=== PATIENT | female | born 1995 | race Caucasian/White ===

== ENCOUNTER 2018-09-22 15:18 | Outpatient (REF) | payer OTHER, SELFPAY ==
--- NOTE | 2018-09-22 14:45 | PAPFT_PTH ---
PATIENT: Jessica Russell LOC: [facility] U#:[id number] AGE/SX: 23/F ROOM: RE09/22/[address]: Yannick Don CNM : 1995 BED: DIS: 09/22/2018 SPEC #: [id number] RECD: 09/22/18 18:02 STATUS: SOCRATES REKim #: [id number] GIOVANI: 09/22/18 14:[address]: Yannick Don DEPT: [facility] Cytology RECD BY: Lilly Scanlon ENTERED: 09/22/18 18:02 SP TYPE: PAPFT OTHR DR: Unknown,Unknown Tissues: 1 - CX/ENDOCX FOR PAP SMEARS Procedures: PAP THIN PREP/UVM Screening HPV DNA PROBE Comments: [id number]
[2018-09-24 13:22] LABS: Chlamydia Result Negative; GC Result Negative; Specimen Description CERVIX
== END 2018-09-22 15:38 ==
LOC: LBN 15:18
PROVIDERS: Visit Provider Advanced Practice Midwife
DX: Z34.91 Encounter for supervision of normal pregnancy, unspecified, first trimester (principal); Z11.3 Encounter for screening for infections with a predominantly sexual mode of transmission; Z12.4 Encounter for screening for malignant neoplasm of cervix
CPT/HCPCS: 87491; 87591; 88142; 87624

== ENCOUNTER 2018-10-02 15:04 | Outpatient (CLI) | payer OTHER, SELFPAY ==
[2018-10-02 16:43] LABS: Abs Immature Grans 0.02 k/cumm (0.0-0.09); Absolute Basophil Count 0.01 k/cumm (0.0-0.2); Absolute Eosinophil Count 0.08 k/cumm (0.0-0.7); Absolute Lymphocyte Count 2.13 k/cumm (1.2-3.4); Absolute Monocyte Count 0.58 k/cumm (0.11-0.7); Absolute Neutrophil Count 5.91 k/cumm (1.2-6.7); Basophils % 0.1; Eosinophils % 0.9; HCT 35.7 % (36.0-46.0); HGB 12.1 g/dL (12.0-15.5); Immature Grans % 0.2; Lymphocytes % 24.4; Mean Corp. HGB Concentration 33.9 g/dL (32.0-36.0); Mean Corpuscular Hemoglobin 29.4 pg (27.0-33.0); Mean Corpuscular Volume 86.7 fL (80-95); Mean Platelet Volume 9.4 fL (8.0-11.0); Monocytes % 6.6; Neutrophils % 67.8; Platelet Count 253 x1000/uL (130-400); RBC 4.12 m/cumm (4.00-5.20); RBC Distribution Width 12.5 % (11.7-14.6); White Blood Cell Count 8.73 k/cumm (4.4-10.8)
[2018-10-02 16:48] LABS: Glucose,1 Hr (Glucola) 110 mg/dL (80-140)
[2018-10-02 18:38] LABS: TSH (W/Ref FT4) 1.45 uIU/mL (0.36-3.74)
[2018-10-05 10:53] LABS: Hepatitis B Surface Ag Negative (NEGAT)
[2018-10-05 10:55] LABS: Hepatitis C Ab w Rflx HCV PCR Negative (NEGAT)
[2018-10-05 11:09] LABS: HIV-1/2 Ag & Ab Screen Negative (NEGAT)
[2018-10-05 11:43] LABS: Rubella IgG Ab (UVM) Positive; Varicella IgG Antibody Positive
== END 2018-10-02 15:24 ==
PROVIDERS: Advanced Practice Midwife; PCP Nurse Practitioner Family; Visit Provider Advanced Practice Midwife
DX: Z34.91 Encounter for supervision of normal pregnancy, unspecified, first trimester (principal); Z11.59 Encounter for screening for other viral diseases; Z01.84 Encounter for antibody response examination; Z11.4 Encounter for screening for human immunodeficiency virus [HIV]
CPT/HCPCS: 36415; 82950; 86787; 86803; 86850; 86900; 86901; 87340; 87389; 84443; 85025; 86762

== ENCOUNTER 2018-10-20 10:46 | Outpatient (REF) | payer OTHER, SELFPAY ==
[2018-10-21 12:28] LABS: *AMPHETAMINES SCREEN URINE Negative (Negative); *BARBITURATES SCREEN URINE Negative (Negative); *BENZODIAZEPINES SCREEN URINE Negative (Negative); Cannabinoids THC Negative (Negative); Cocaine Screen,Urine Negative (Negative); METHADONE URINE SCREEN Negative (Negative); OPIATES URINE SCREEN Negative (Negative)
[2018-10-21 12:32] LABS: Tricyclic Antidepressants Negative (Negative)
[2018-10-27 14:58] LABS: Buprenorphine Negative; Norbuprenorphine Negative
== END 2018-10-20 11:06 ==
LOC: LBN 10:46
PROVIDERS: PCP Nurse Practitioner Family; Visit Provider Advanced Practice Midwife
DX: Z34.91 Encounter for supervision of normal pregnancy, unspecified, first trimester (principal)
CPT/HCPCS: 80307; 87086

== ENCOUNTER 2018-12-02 01:07 | Outpatient (CLI) | payer BC, OTHER, SELFPAY ==
--- NOTE | 2018-12-02 07:26 | DI.US_ITS ---
EXAM: US OB 2-3 TRIMESTER W MOD CLINICAL HISTORY: , survey,Z34.90. TECHNIQUE: Ultrasound performed using standard protocol. COMPARISON: There is no prior comparison examination. FINDINGS: A cephalic presentation is noted. anomaly was identified; however, the nose and lips wer e not seen. measurements suggest a gestational age of 19 weeks and 3 days. The amniotic fluid index is normal. A posterior grade 0-I placenta is identified. [facility], date to be arranged. IMPRESSION: Please see the obstetrical ultrasound worksheet for complete results of this study.
== END 2018-12-02 01:27 ==
PROVIDERS: PCP Nurse Practitioner Family; Visit Provider Advanced Practice Midwife
DX: Z34.92 Encounter for supervision of normal pregnancy, unspecified, second trimester (principal)
CPT/HCPCS: 76805

== ENCOUNTER 2018-12-23 01:41 | Outpatient (CLI) | payer BC, SELFPAY ==
--- NOTE | 2018-12-23 14:50 | DI.US_ITS ---
EXAM: US OB F/U FACIAL/LVOT/RVOT CLINICAL HISTORY: F/U SURVEY, F/U NOSE/LIPS TECHNIQUE: Ultrasound performed using standard protocol. COMPARISON: US OB 2-3 TRIMESTER W MOD from 12/02/2018 FINDINGS: The fetus is in cephalic position. The nose and lips are visualized on today's exam but were somewha t difficult to visualize due to position. Cardiac activity and motion are noted. The pl acenta is grade 1 and posterior. IMPRESSION: No gross evidence of a facial abnormality.
== END 2018-12-23 02:01 ==
PROVIDERS: Visit Provider Advanced Practice Midwife
DX: Z34.82 Encounter for supervision of other normal pregnancy, second trimester (principal); Z36.2 Encounter for other antenatal screening follow-up
CPT/HCPCS: 76815

== ENCOUNTER 2019-01-29 14:18 | Outpatient (CLI) | payer OTHER, SELFPAY ==
[2019-01-29 15:42] LABS: HCT 31.9 % (36.0-46.0); HGB 10.5 g/dL (12.0-15.5); Mean Corp. HGB Concentration 32.9 g/dL (32.0-36.0); Mean Corpuscular Hemoglobin 29.1 pg (27.0-33.0); Mean Corpuscular Volume 88.4 fL (80-95); Mean Platelet Volume 10.1 fL (8.0-11.0); Platelet Count 273 x1000/uL (130-400); RBC 3.61 m/cumm (4.00-5.20); RBC Distribution Width 12.7 % (11.7-14.6); White Blood Cell Count 6.66 k/cumm (4.4-10.8)
[2019-01-29 15:48] LABS: Glucose,1 Hr (Glucola) 81 mg/dL (80-140)
[2019-02-01 11:17] LABS: Syphilis Total Ab w/Reflex Nonreactive (Nonreactive)
== END 2019-01-29 14:38 ==
PROVIDERS: Advanced Practice Midwife; Visit Provider Advanced Practice Midwife
DX: Z34.92 Encounter for supervision of normal pregnancy, unspecified, second trimester (principal)
CPT/HCPCS: 82950; 85027; 86780

== ENCOUNTER 2019-03-29 16:13 | Outpatient (REF) | payer OTHER, SELFPAY ==
[2019-03-29 16:43] LABS: *AMPHETAMINES SCREEN URINE Negative (Negative); *BARBITURATES SCREEN URINE Negative (Negative); *BENZODIAZEPINES SCREEN URINE Negative (Negative); Cannabinoids THC Negative (Negative); Cocaine Screen,Urine Negative (Negative); METHADONE URINE SCREEN Negative (Negative); OPIATES URINE SCREEN Negative (Negative)
[2019-03-29 16:44] LABS: Tricyclic Antidepressants Negative (Negative)
[2019-04-01 10:20] LABS: Buprenorphine Negative
== END 2019-03-29 16:33 ==
LOC: LBN 16:13
PROVIDERS: Visit Provider Advanced Practice Midwife
DX: Z34.93 Encounter for supervision of normal pregnancy, unspecified, third trimester (principal); Z36.85 Encounter for antenatal screening for Streptococcus B
CPT/HCPCS: 80307; 87081

== ENCOUNTER 2019-04-19 15:55 | Outpatient (CLI) | payer OTHER, SELFPAY | END 2019-04-19 16:15 | PROVIDERS: Visit Provider Advanced Practice Midwife | DX: O76 Abnormality in fetal heart rate and rhythm complicating labor and delivery (principal); Z3A.38 38 weeks gestation of pregnancy | CPT/HCPCS: 59025 ==

== ENCOUNTER 2019-04-26 16:46 | Inpatient (IN) | payer OTHER, SELFPAY ==
[2019-04-26 17:19] LABS: HGB 11.9 g/dL (12.0-15.5); Mean Corp. HGB Concentration 33.1 g/dL (32.0-36.0); Mean Corpuscular Hemoglobin 28.5 pg (27.0-33.0); Mean Corpuscular Volume 86.1 fL (80-95); Mean Platelet Volume 10.1 fL (8.0-11.0); Platelet Count 272 x1000/uL (130-400); RBC 4.18 m/cumm (4.00-5.20); RBC Distribution Width 13.3 % (11.7-14.6); White Blood Cell Count 11.87 k/cumm (4.4-10.8)
[2019-04-26] MEDS: Lactated Ringers 250 ML 500 ML IV (21:30)
[2019-04-27] MEDS: Lactated Ringers 1,000 ML 125 ML IV (01:01)
[2019-04-27] MEDS: Ibuprofen 600 MG TAB PO (11:09)
[2019-04-27] MEDS: Acetaminophen 325 MG TAB 650 MG PO (11:09)
[2019-04-27] MEDS: Hamamelis Leaf/Glycerin 100 EACH BOX PR (11:10)
== END 2019-04-28 16:00 | disposition home or self-care (01) | DRG 807 ==
PROVIDERS: Admitting Provider Advanced Practice Midwife; Visit Provider Advanced Practice Midwife
DX: O62.1 Secondary uterine inertia (principal); Z37.0 Single live birth; Z3A.39 39 weeks gestation of pregnancy; O69.81X0 Labor and delivery complicated by cord around neck, without compression, not applicable or unspecified; Z30.09 Encounter for other general counseling and advice on contraception; O99.02 Anemia complicating childbirth; O99.344 Other mental disorders complicating childbirth; D64.9 Anemia, unspecified; F43.21 Adjustment disorder with depressed mood; Z79.82 Long term (current) use of aspirin
CPT/HCPCS: 36415; 85027; 86850; 86900; 86901; J3490

== ENCOUNTER 2019-06-01 15:49 | Outpatient (REF) | payer OTHER, SELFPAY ==
[2019-06-02 15:09] LABS: Chlamydia Result Negative (Negative); GC Result Negative (Negative)
== END 2019-06-01 16:09 ==
LOC: LBN 15:49
PROVIDERS: Visit Provider Advanced Practice Midwife
DX: Z11.3 Encounter for screening for infections with a predominantly sexual mode of transmission (principal); Z97.5 Presence of (intrauterine) contraceptive device
CPT/HCPCS: 87491; 87591

== ENCOUNTER 2020-02-11 14:07 | Emergency (ER) | payer OTHER, SELFPAY ==
[2020-02-11 14:15] VITALS: BP 125/73; PULSE 91; RESP 18; TEMP 36.6; O2SAT 99
--- NOTE | 2020-02-11 14:33 | W.ED.GENAD ---
Discharge Plan Disposition Patient Disposition: HOME Condition: Stable Discharge Details Clinical Impression: Acute sore throat Primary Care Provider: Ese Barney ED Provider: Eladia Collazo Home Meds and New Rx's Prescriptions: New cephalexin 500 mg tablet 500 mg PO BID 7 Days Qty: 14 RF: 0 No Action Mirena 20 mcg/24 hours (5 yrs) 52 mg intrauterine device 1 device IY ONCE RF: 0 Discharge Instructions Instructions: Strep Throat (ED) Additional Instructions: Follow up with primary care provider in 3-5 days. Return to ED sooner if any worsening or concerns. Increase oral fluids. Please take Tylenol or Ibuprofen with food every 4-6 hours as needed for pain and swelling. Gargle with warm salt water gargles 3 times a day as needed. Referrals: Ese Barney [Primary Care Provider] - Medical Decision Making 24-year-old female presents to the ED with chief complaint of sore throat. Patient states that she has extensive history of strep throat which she gets about yearly. She denies any shortness of breath or cough. Rapid strep swab obtained and is negative will be sent for reflex culture at this time. Patient was given ibuprofen and dexamethasone p.o. here in department. Discussed results with patient, verbalized understanding. At this time due to patient's history and recurrent history of strep throat will treat with antibiotics. She would opt for oral antibiotics at this time. Prescription written for cephalexin 500 mg twice a day x7 days. Instructed to gargle with warm salt water 3 times a day as needed. Instructed to follow-up with PCP verbalized understanding. This text was generated using [employer] dictation system, please disregard any oddities of phrase or misspellings. HPI General Mode of arrival: ambulatory. Date/Time Provider Initiated Documentation: 02/11/20 14:09. Limitations to Documentation: no limitations. Information obtained by: patient. HPI Narrative: 24-year-old female presents to the ED with chief complaint of sore throat. Patient states that she has extensive history of strep throat which she gets about yearly. She denies any shortness of breath or cough. Related Data Home Medications Medication Instructions Recorded Confirmed levonorgestrel 20 mcg/24 hours (6 1 device IY ONCE 06/01/19 07/26/19 yrs) 52 mg intrauterine device cephalexin 500 mg PO BID 7 Days #14 tab 02/11/20 Previous Rx's Medication Instructions Recorded cephalexin 500 mg PO BID 7 Days #14 tab 02/11/20 Allergies Allergy/AdvReac Type Severity Reaction Status Date / Time clarithromycin [From Biaxin] AdvReac Intermediate vomiting Verified 07/26/19 15:43 Influenza Virus Vaccines AdvReac Verified 07/26/19 15:43 General Stated Complaint: Sorethroat DEMAR: 3 Review of Systems Narrative: Constitutional: Negative for weight loss, alert and oriented, well groomed, normal body habitus, appears comfortable. HEENT: Denies trauma, headaches, blurry vision, nasal discharge, positive sore throat. Chest: Denies chest pain, palpitations, irregular rhythm, hypertension. Respiratory: Denies Shortness of breath, cough, hemoptysis. GI: Denies abdominal pain, nausea, vomiting, diarrhea, constipation. : Denies dysuria, hematuria, flank pain, rectal bleeding. Neuro: Denies dizziness, blurry vision, weakness, syncope, headache or facial numbness. Hematologic: Denies easy bruising, intolerance to heat or cold, hair loss. 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 Father No problems noted. Social History (Updated 09/15/18 @ 10:59 by Elisha Arteaga RN, RN) Smoking/Tobacco Use Status: Never Second Hand Exposure: Yes Smoking risk assessment performed?: Yes Alcohol Intake: current Alcohol Intake frequency: holidays/special occasions only Details: quit when she found out she was Drug use: Rarely Substance use type: marijuana Household members: significant other Do you feel safe at home: Yes Do you feel safe in your relationship?: Yes Female Reproductive History Menstrual Age of Menarche: 11 Duration of menses: 6-7 days control method: progestin IUCD History History 1 Para 0 Hx # Term Pregnancies 1 Multiple births 0 Hx # Pregnancies 0 Ectopic pregnancies 0 AB induced 0 Hx Number of Living Children 0 AB spontaneous 0 Past Pregnancies Del. Date GA/Weeks # Outcome Route Wgt Sex Labor Lgth Anesthesia Location Prov Complic 04/27/19 40 No Successful vaginal 3260.195 g Female 12hrs 2 min A. JOSÉ MIGUEL Dobbins Delivery Date: 04/27/19 Epidural, Nitrous during labor Ruby Mast Exam Narrative Exam Narrative: Constitutional: Alert and oriented x3. Appears stated age. Normal body habitus. Head: Normocephalic, no trauma. Eyes: Pupils PERRLA, Red reflex noted, EOM's intact. Eyelids symmetrical without lesions, discharge, or swelling. ENT: Bilateral TM's WNL, External ear normal to inspection, no mastoid TTP, swelling, or erythema, Nasal turbinates WNL, no nasal discharge. Normal dentition, Posterior pharynx beefy red, questionable exudate noted to the posterior oropharynx. Status post tonsillectomy. Tonsils bilaterally are 0. Positive anterior cervical lymphadenopathy. Chest: RRR, Normal S1, S2, distal pulses intact. Resp: Lungs clear to auscultation bilaterally, no wheezes, rales, or rhonchi. Musculoskeletal: Normal gait, 5/5 strength to all four extremities. Skin: No suspicious rashes or lesions. Capillary refill less than 2 sec. . Hematologic/Lymphatic: No ecchymosis, Course Vital Signs Vital signs: Vital Signs Temperature 36.6 C 02/11/20 14:15 Pulse 91 H 02/11/20 14:15 Respiratory Rate 18 02/11/20 14:15 Blood Pressure 125/73 02/11/20 14:15 Pulse Oximetry 99 02/11/20 14:15 Temperature 36.6 C 02/11/20 14:15 Temperature Source Tympanic 02/11/20 14:15 Pulse 91 H 02/11/20 14:15 Respiratory Rate 18 02/11/20 14:15 Respiratory Effort 02/11/20 14:20 Blood Pressure 125/73 02/11/20 14:15 Blood Pressure Position Sitting 02/11/20 14:15 Pulse Oximetry 99 02/11/20 14:15 Oxygen Delivery Method Room Air 02/11/20 14:15 Oxygen Flow Rate 0 02/11/20 14:15 Pain Level 10 02/11/20 14:15 Comment 02/11/20 14:15
[2020-02-11] MEDS: Ibuprofen 600 MG TAB PO (14:48)
[2020-02-11] MEDS: Dexamethasone 10 MG/ML VIAL PO (14:48)
[2020-02-11 15:07] VITALS: BP 121/76; PULSE 101; RESP 16; TEMP 36.9; O2SAT 100
== END 2020-02-11 15:09 | disposition home or self-care (01) ==
PROVIDERS: Emergency Provider Registered Nurse Emergency; PCP Family Medicine
DX: J02.8 Acute pharyngitis due to other specified organisms (principal)
CPT/HCPCS: 87880; 99283; 87081; J1100

== ENCOUNTER 2021-07-30 11:43 | Emergency (ER) | payer OTHER, SELFPAY ==
[2021-07-30 11:55] VITALS: BP 118/67; PULSE 84; RESP 14; TEMP 36.2; O2SAT 100
--- NOTE | 2021-07-30 12:20 | ED.GENADUL_ITS ---
Discharge Plan Disposition Patient Disposition: HOME Condition: Stable Discharge Details Clinical Impression: Abdominal pain, Nausea Primary Care Provider: Ese Barney ED Provider: Eva Miller Home Meds and New Rx's Prescriptions: New ondansetron 4 mg tablet,disintegrating 4 mg PO Q6H PRN (Reason: nausea and vomiting) Qty: 10 0RF Continued Mirena 20 mcg/24 hours (5 yrs) 52 mg intrauterine device 1 device IY ONCE Rx Instructions: placed 06/01/2019 Discharge Instructions Instructions: Acute Nausea and Vomiting (ED), Abdominal Pain (ED) Additional Instructions: Your imaging and labs are reassuring here today. Your abdominal discomfort may be associated with what you had for dinner or inflammation. Please encourage hydration. Tylenol as needed for discomfort. Zofran as prescribed if you develop recurrent nausea. Please keep your upcoming appointment with your primary care. If you develop fevers/chills, increased pain, inability to stay hydrated or other new/worsening symptoms please seek care urgently once again. Referrals: Ese Barney [Primary Care Provider] - Discharge Data Discharge Date/Time-TO BE ENTERED AT DEPARTURE: 07/30/21 15:45 Medical Decision Making Patient is a pleasant 26 year old female presenting today with c/c of abdominal discomfort that began yesterday. She describes pain starting around 0900, initially thought associatedw tih dinner the night prior. Endorses nausea, no vomiting. No change in bowel or bladder habits. No pertient surgical history. Denies fevers but states she has had some chills. States that pain is primarily epigastric, maximal after eating. Pain initially right then left sided. Now radiating toward the LLQ. On exam, patient appears nontoxic. She appears well hydrated, VS stable. She is diffusely tender, maximal in the epigastric region. Concerned given her signficant increase in discomfort after eating, for possible cholecystitis, will obtain US. Patint also tender in LLQ but this does ont seem as pronounced. She states this radiates to the LUQ. No pain in her back. No CVA tenderness. As pain is changed with PO intake, I find ovarianc cyst or torsion highly unlikely. She has had cysts pior but does not belive this is similar. Will preform SECURITY GUARD eam to look for adenexal tenderness. She denies vaginal pain or discharge. US obtained: FINDINGS: LIVER: Mildly enlarged.? Mild fatty infiltration..? No focal liver lesions are seen.. GALLBLADDER: No evidence of cholelithiasis. No evidence of wall thickening. No pericholecystic fluid identified. JACQUES'S SIGN: Negative. BILIARY SYSTEM: No intrahepatic or extrahepatic biliary ductal dilation. KIDNEYS: Kidneys are symmetric in size. No evidence of renal calculi. No evidence of hydronephrosis. No renal mass or cyst identified. PANCREAS: Normal where visualized. SPLEEN: Not enlarged. ABDOMINAL AORTA AND IVC: Visualized portions normal caliber. ASCITES: None seen. IMPRESSION: Mildly enlarge fatty liver.? No evidence of cholelithiasis or biliary dilatation . Labs reviewed, UA contaminated. She has no dysurea, frequency or urgency. No leukocytosis, patient is not anemic. Normal CMP and lipase. Discussed findings with the patient. She appears more comfortable, receiving hydration, drinking. She continued to have discomfort, more along left side at this time. Vaginal exam preformed, no adenexal tenderness or cervical tenderness. Discussed findings with the patient. Her exam is reassuring but patient continues to report signficant pain. Will treat pain and obtain CT for abdoinal pain of unclear etiology. Secondary to shortage, the CT will be without contrast. FINDINGS: ABDOMEN: Lung Bases: Normal where visualized. Liver: Fatty infiltration.? Mildly enlarged.? No measurable mass. Gallbladder and biliary tract: No radiodense calculus or dilation. Pancreas: Normal density, no abnormal calcifications or inflammatory process. Spleen: Normal. Kidneys: Normal size, contour and axis.? Two tiny nonobstructing stone lower pole right kidney.? No obstructive uropathy. No masses seen. Adrenal glands: No masses seen. Lymph nodes: Within normal limits. Abdominal Aorta: Abdominal portion non-dilated. PELVIS:? Bladder: Symmetric distention, no gross wall thickening. Bowel: Appendix normal.? Normal quantity of stool.? No obstruction or bowel wall thickening. Peritoneal cavity: No ascites, collection or mesenteric inflammatory response. Reproductive organs: IUD.? Within normal limits. Bones: Within normal limits. IMPRESSION: Unremarkable CT scan of the abdomen and pelvis. Discussed findings with the patient. Advised unclear etiology. Given timig, may be assoiated with what she ate prior to onset of pain. I advised watch/wait approach. Encouraged supportive care. Return precautions discussed. Discussed advancement of diet. Encouraged she f/u with PCP. All of her quesitons and cocnerns were addressed, she is in agreement iwth this plan. HPI General Date/Time Provider Initiated Documentation: 07/30/21 12:20 . Limitations to Documentation: no limitations . Information obtained by: patient and RN notes reviewed . History of Present Illness 26 year old F presents to the emergency department with the chief complaint of abdominal discomfort, described as severe, with intensity rated at 10. Quality is described as aching, and is localized to the abdomen. Patient reports no radiation. Patient started experiencing this day(s) (1) and it has been constant. No relieving factors improve symptom(s), Eating worsens symptoms . Patient notes loss of appetite and nausea/vomiting (nausea, no vomiting); denies chest pain, diaphoresis, fever/chills, rash and shortness of breath. Patient did receive the following treatments prior to arrival, none Related Data Home Medications Medication Instructions Recorded Confirmed levonorgestrel 20 mcg/24 hours (7 1 device intrauterine ONCE 06/01/19 07/30/21 yrs) 52 mg intrauterine device (Mirena) ondansetron 4 mg disintegrating 4 mg PO Q6H PRN nausea and 07/30/21 tablet vomiting #10 tabs Previous Rx's Medication Instructions Recorded ondansetron 4 mg disintegrating 4 mg PO Q6H PRN nausea and 07/30/21 tablet vomiting #10 tabs Allergies Allergy/AdvReac Type Severity Reaction Status Date / Time clarithromycin [From Biaxin] AdvReac Intermediate vomiting Verified 07/30/21 11:58 Influenza Virus Vaccines AdvReac Verified 07/30/21 11:58 General Stated Complaint: Abd Prob DEMAR: 3 Review of Systems Constitutional Constitutional: Reports as per HPI, Denies chills, Denies fatigue, Denies fever(s) and Denies headache(s) ENT Ears, Nose, Mouth, and Throat: Denies headache(s) Cardiovascular Cardiovascular: Reports as per HPI, Denies chest pain and Denies dyspnea Respiratory Respiratory: Reports as per HPI, Denies cough and Denies dyspnea Gastrointestinal Gastrointestinal: Reports as per HPI Genitourinary Genitourinary: Denies abnormal vaginal bleeding, Denies hematuria, Denies dyspareunia (had intercourse without pain yesterday when in pain), Denies urinary urgency and Denies vaginal discharge Musculoskeletal Musculoskeletal: Reports as per HPI and Denies back pain Integumentary/Breasts Skin/Breast: Reports as per HPI and Denies rash Neurologic Neurologic: Reports as per HPI and Denies headache(s) Endocrine Endocrine: Denies fatigue PFSH All Active Problems (Updated 07/30/21 @ 15:30 by NICHOLE Landis) Abdominal pain (Acute) Nausea (Acute) Concussion (Acute) Contraception, device intrauterine (Acute) exam (Acute) ASCUS with positive high risk HPV (Acute) S/P wisdom tooth extraction (Acute) (Acute) Medical History Allergic rhinitis ALLERGIC DUST, MOLD, POLLEN ASCUS with positive high risk HPV Depressed affect Ovarian cyst Surgical History Tonsillectomy and adenoidectomy [place] teeth extracted Family History Mother No problems noted. Father No problems noted. Social History Smoking/Tobacco Use Status: Never Second Hand Exposure: Yes Smoking risk assessment performed?: Yes Alcohol Intake: current Alcohol Intake frequency: holidays/special occasions only Details: quit when she found out she was Drug use: Occasionally Substance use type: marijuana Details: on weekends Household members: significant other Seatbelt use: always Do you feel safe at home: Yes Do you feel safe in your relationship?: Yes Female Reproductive History Menstrual Age of Menarche: 11 Duration of menses: 6-7 days control method: progestin IUCD History History 1 Para 0 Hx # Term Pregnancies 1 Multiple births 0 Hx # Pregnancies 0 Ectopic pregnancies 0 AB induced 0 Hx Number of Living Children 0 AB spontaneous 0 Past Pregnancies Del. Date GA/Weeks # Outcome Route Wgt Sex Labor Lgth Anesthes ia Location [facility] 04/27/19 40 No Successful vaginal 3260.195 g Female 12hrs 2 min ACurtis Dobbins CNM Delivery Date: 04/27/19 Last Updated by: Ruby Miller LPN Epidural, Nitrous during labor Exam Const General: cooperative, healthy appearing, comfortable, no acute distress and well developed Nutritional Appearance: well nourished and overweight Orientation: alert and awake [facility] Head: normal to inspection Mouth: moist mucous membranes Resp Effort & Inspection: normal respiratory effort, able to speak in complete sentences and no respiratory distress Auscultation: clear to auscultation bilaterally, no rales, no rhonchi and no wheezes Cardio Rate: regular rate Rhythm: regular rhythm Heart Sounds: S1 normal and S2 normal GI Inspection: normal to inspection Palpation: soft, no hepatosplenomegaly, not firm, no guarding, no masses, not rigid and tender (fairly diffuse) in the epigastrum, in the LLQ and in the LUQ; Jacques's sign negative and with no rebound tenderness Percussion: normal to percussion Auscultation: normal bowel sounds External Female Exam: normal external appearance Speculum Exam - Cervix: nontender Bimanual Exam- Vagina & Uterus: normal bimanual exam, normal palpation, No tender and non-tender Bimanual Exam- Adnexa, other: normal adnexae, no masses and no tenderness Back/Spine/Pelvis Back: no CVA tenderness Skin General skin exam: no rashes or lesions noted Trauma: no lacerations or abrasions Neuro General: patient alert and patient awake Cognition: normal cognition Speech: speech normal Gait: normal gait Psych Appearance: grossly normal and well kempt Mental Status: mental status grossly normal Speech and Movement: speech and movement normal Course Vital Signs Vital signs: Vital Signs Temperature 36.2 C L 07/30/21 11:55 Pulse 84 07/30/21 11:55 Respiratory Rate 14 07/30/21 11:55 Blood Pressure 118/67 07/30/21 11:55 Pulse Oximetry 100 07/30/21 11:55 Temperature 36.2 C L 07/30/21 11:55 Temperature Source Skin 07/30/21 11:55 Pulse 84 07/30/21 11:55 Respiratory Rate 14 07/30/21 11:55 Respiratory Effort 07/30/21 12:05 Blood Pressure 118/67 07/30/21 11:55 Blood Pressure Position Sitting 07/30/21 11:55 Pulse Oximetry 100 07/30/21 11:55 Oxygen Delivery Method Room Air 07/30/21 11:55 Oxygen Flow Rate 0 07/30/21 11:55 Pain Level 10 07/30/21 11:55 Comment 05/23/22 11:55 Lab/Test Results Lab/Test Results: POC- Test(urine) Negative PAWSS Have you Been Recently Intoxicated or Drunk Within the Last 30 days?: No Have you Ever Experienced Previous Episodes of Alcohol Withdrawal?: No Have you ever Experienced Withdrawal Seizures?: No Have you ever Experienced Delirium Tremens(DT)s?: No Have you ever undergone Alcohol Rehabilitation Treatment (i.e, inpt ot outpati ent treatment programs)?: No Have you ever Experienced Blackouts?: No Have you ever Combined Alcohol with other Downers within the last 90 days?: No Have you ever Combined Alcohol with any other Substance of Abuse during the last 90 days?: No Positive Blood Alcohol level on Presentation? [PCS.BAL]: No Evidence of Increased Autonomic Activity (i.e. HR>120, tremor, sweating, agitation, nausea)?: No Result: 0
--- NOTE | 2021-07-30 12:36 | DI.US_ITS ---
Exam(s) US ABDOMEN EXAM: US ABDOMEN CLINICAL HISTORY: postprandial pain epigastric TECHNIQUE: Ultrasound abdomen performed using standard protocol. COMPARISON: CT ABD PELVIS WITH CONTRAST from 07/17/2015 FINDINGS: LIVER: Mildly enlarged. Mild fatty infiltration.. No focal liver lesions are seen.. GALLBLADDER: No evidence of cholelithiasis. No evidence of wall thickening. No pericholecystic fluid identified. BONE'S SIGN: Negative. BILIARY SYSTEM: No intrahepatic or extrahepatic biliary ductal dilation. KIDNEYS: Kidneys are symmetric in size. No evidence of renal calculi. No evidence of hydronephrosis. No renal mass or cyst identified. PANCREAS: Normal where visualized. SPLEEN: Not enlarged. ABDOMINAL AORTA AND IVC: Visualized portions normal caliber. ASCITES: None seen. IMPRESSION: Mildly enlarged fatty liver. No evidence of cholelithiasis or biliary dilatation. DATA REPOSITORY:
[2021-07-30] MEDS: Normal Saline 1,000 ML 1000 ML IV (12:43)
[2021-07-30 13:05] LABS: Abs Immature Grans 0.02 10^3/uL (0.0-0.06); Absolute Basophil Count 0.03 10^3/uL (0.0-0.2); Absolute Eosinophil Count 0.15 10^3/uL (0.0-0.7); Absolute Lymphocyte Count 1.71 10^3/uL (1.2-3.4); Absolute Monocyte Count 0.54 10^3/uL (0.1-0.8); Basophils % 0.5; Eosinophils % 2.3; HCT 41.9 % (36.0-46.0); HGB 13.9 g/dL (11.2-15.7); Immature Grans % 0.3; Lymphocytes % 26.5; MCH 29.2 pg (27.0-33.0); MCHC 33.2 % (32.0-36.0); MCV 88 fL (80-95); MPV 9.1 fL (8.0-11.0); Monocytes % 8.4; Platelet Count 240 10^3/uL (130-400); RBC 4.76 10^6/uL (3.93-5.22); RDW 12.5 % (11.7-14.6); RDW-SD 40.9 fL; WBC 6.45 10^3/uL (4.4-10.8)
[2021-07-30 13:18] LABS: ALT 22 U/L (14-59); AST 14 U/L (15-37); Albumin 3.6 g/dL (3.4-5.0); Alkaline Phosphatase 92 U/L (46-116); Anion Gap 10.3 mmol/L (3-11); BUN 12 mg/dL (7-18); Bilirubin, Total 0.5 mg/dL (0.2-1.0); CO2 24.7 mmol/L (21.0-32.0); CREATININE 0.7 mg/dL (0.55-1.02); Calcium 8.6 mg/dL (8.5-10.1); Chloride 104 mmol/L (98-107); Glucose 108 mg/dL (74-106); Lipase 46 U/L (73-393); Magnesium 2.4 mg/dL (1.8-2.4); Potassium 3.6 mmol/L (3.5-5.1); Sodium 139 mmol/L (136-145); Total Protein 7.7 g/dL (6.4-8.2)
[2021-07-30 13:32] LABS: Bilirubin Negative (Negative); Blood Small (Negative); Clarity Sl Cloudy (Clear); Glucose Negative (Negative); Ketones Negative (Negative); Leukocyte Esterase Negative (Negative); Nitrite Negative (Negative); Specific Gravity >= 1.030 (1.005-1.025); Urobilinogen 0.2 EU/dL (Up TO 0.2)
[2021-07-30 13:40] LABS: Bacteria Moderate HPF (Negative); C & S Indicated? No/Sq. Contamination; Casts 0-2 Hyaline LPF (Negative); Crystals Rare Calcium Oxalate HPF (Negative); Epithelial Cells Many HPF (Negative); Mucus Trace (Negative); WBC 0-2 HPF (0-5)
--- NOTE | 2021-07-30 14:00 | DI.CT_ITS ---
Exam(s) CT ABDOMEN PELVIS WO EXAM: CT ABDOMEN PELVIS WO CLINICAL HISTORY: diffuse discomfort,. TECHNIQUE: Imaging Protocol: Axial computed tomography images with coronal and sagittal reformatted images were created and reviewed. Oral: / no COMPARISON: CT ABD PELVIS WITH CONTRAST from 07/17/2015 FINDINGS: ABDOMEN: Lung Bases: Normal where visualized. Liver: Fatty infiltration. Mildly enlarged. No measurable mass. Gallbladder and biliary tract: No radiodense calculus or dilation. Pancreas: Normal density, no abnormal calcifications or inflammatory process. Spleen: Normal. Kidneys: Normal size, contour and axis. Two tiny nonobstructing stone lower pole right kidney. No o bstructive uropathy. No masses seen. Adrenal glands: No masses seen. Lymph nodes: Within normal limits. Abdominal Aorta: Abdominal portion non-dilated. PELVIS: Bladder: Symmetric distention, no gross wall thickening. Bowel: Appendix normal. Normal quantity of stool. No obstruction or bowel wall thickening. Peritoneal cavity: No ascites, collection or mesenteric inflammatory response. Reproductive organs: IUD. Within normal limits. Bones: Within normal limits. IMPRESSION: Unremarkable CT scan of the abdomen and pelvis. RADIATION DOSE DELIVERED: 1,260.04mGy.cm Total DLP DATA REPOSITORY: All CT scans at this facility are submitted to the National Radiology Data Registry (NRDR) Dose Index Registry (DIR) with the [employer] (ACR). RADIATION OPTIMIZATION: All CT scans at this facility use at least one of these dose optimization te chniques: automated exposure control; mA and/or kV adjustment per patient size (includes targeted exa ms where dose is matched to clinical indication); or iterative reconstruction.
[2021-07-30 14:43] VITALS: BP 99/59; PULSE 69; RESP 16; TEMP 36; O2SAT 100
== END 2021-07-30 15:45 | disposition home or self-care (01) ==
PROVIDERS: Emergency Provider Physician Assistant; PCP Family Medicine
DX: R10.9 Unspecified abdominal pain (principal); R11.0 Nausea; R10.12 Left upper quadrant pain; R10.13 Epigastric pain
CPT/HCPCS: 80053; 81025; 83690; 96360; 99284; 74176; 76700; 81003; 81015; 83735; 85025; 99283

== ENCOUNTER 2021-12-03 13:46 | Outpatient (REF) | payer OTHER, SELFPAY ==
--- NOTE | 2021-12-03 13:00 | PAPFT_PTH ---
PATIENT: Jessica Russell LOC: [facility] U#:[id number] AGE/SX: 26/F ROOM: RE12/03/[address]: Liz Reyes NP : 1995 BED: DIS: 12/03/2021 SPEC #: [id number] RECD: 12/03/21 17:45 STATUS: SOCRATES REQ #: [id number] GIOVANI: 12/03/21 13:[address]: Eric VALLEJO,Liz DEPT: [facility] Cytology RECD BY: Lilly Scanlon ENTERED: 12/03/21 17:45 SP TYPE: PAPFT OTHR DR: Ese Barney Tissues: 1 - CX/ENDOCX FOR PAP SMEARS Procedures: PAP THIN PREP/UVM Screening Comments: [id number]
== END 2021-12-03 13:47 | disposition home or self-care (01) ==
LOC: LBN 13:46
PROVIDERS: PCP Family Medicine; Visit Provider Nurse Practitioner Women's Health
DX: Z12.4 Encounter for screening for malignant neoplasm of cervix (principal)
CPT/HCPCS: 88142

== ENCOUNTER 2021-12-12 11:16 | Outpatient (REF) | payer OTHER, SELFPAY ==
[2021-12-14 11:08] LABS: COVID-19 RT-PCR UVMMC Result Negative (Negative)
== END 2021-12-12 11:17 | disposition home or self-care (01) ==
LOC: LBN 11:16
PROVIDERS: PCP Family Medicine; Visit Provider Physician Assistant Medical
DX: Z20.822 Contact with and (suspected) exposure to COVID-19 (principal); R05.8 Other specified cough
CPT/HCPCS: U0003

== ENCOUNTER 2022-05-30 16:14 | Outpatient (CLI) | payer OTHER, SELFPAY ==
[2022-05-30 16:27] LABS: Calculated LDL 123 mg/dL (<100); Cholesterol 206 mg/dL (<200); HDL Cholesterol 41 mg/dL (40-60); Magnesium 1.8 mg/dL (1.8-2.4); Triglyceride 213 mg/dL (<150)
[2022-05-30 18:26] LABS: Uric Acid 4.3 mg/dL (2.6-6.0)
== END 2022-05-30 16:15 | disposition home or self-care (01) ==
LOC: LBO 16:15
PROVIDERS: PCP Family Medicine; Visit Provider Student in an Organized Health Care Education/Training Program
DX: L30.9 Dermatitis, unspecified (principal)
CPT/HCPCS: 36415; 80061; 83735; 84550

== ENCOUNTER 2023-01-02 13:32 | Outpatient (REF) | payer OTHER, SELFPAY ==
--- NOTE | 2023-01-02 13:15 | PAPFT_PTH ---
PATIENT: Jessica Russell LOC: [facility] U#:[id number] AGE/SX: 27/F ROOM: RE01/02/[address]: Gay Bailon CNM : 1995 BED: DIS: 01/02/2023 SPEC #: [id number] RECD: 01/02/23 18:24 STATUS: SOCRATES REQ #: [id number] GIOVANI: 01/02/23 13:[address]: Gay Bailon DEPT: [facility] Cytology RECD BY: Lilly Scanlon ENTERED: 01/02/23 18:24 SP TYPE: PAPFT OTHR DR: Ese Barney Tissues: 1 - CX/ENDOCX FOR PAP SMEARS Procedures: PAP THIN PREP/UVM Screening Comments: [id number]
== END 2023-01-02 13:33 | disposition home or self-care (01) ==
LOC: LBN 13:32
PROVIDERS: PCP Family Medicine; Visit Provider Advanced Practice Midwife
DX: Z12.4 Encounter for screening for malignant neoplasm of cervix (principal)
CPT/HCPCS: 88142

== ENCOUNTER 2023-07-24 13:14 | Outpatient (CLI) | payer OTHER, SELFPAY ==
[2023-07-24 13:06] LABS: Abs Immature Grans 0.03 10^3/uL (0.0-0.06); Absolute Basophil Count 0.09 10^3/uL (0.0-0.2); Absolute Eosinophil Count 1.54 10^3/uL (0.0-0.7); Absolute Lymphocyte Count 2.67 10^3/uL (1.2-3.4); Absolute Neutrophil Count 4.09 10^3/uL (1.2-6.7); Eosinophils % 17.1 %; HGB 13.1 g/dL (11.2-15.7); Immature Grans % 0.3 %; Lymphocytes % 29.6 %; MCH 29.3 pg (27.0-33.0); MCHC 33.6 % (32.0-36.0); MCV 87 fL (80-95); MPV 9.3 fL (8.0-11.0); Monocytes % 6.7 %; Neutrophils % 45.3 %; Platelet Count 275 10^3/uL (130-400); RBC 4.47 10^6/uL (3.93-5.22); RDW 12.3 % (11.7-14.6); RDW-SD 39.3 fL; WBC 9.02 10^3/uL (4.4-10.8)
[2023-07-24 13:54] LABS: ALT 24 U/L (14-59); AST 14 U/L (15-37); Albumin 3.7 g/dL (3.4-5.0); Alkaline Phosphatase 92 U/L (46-116); BUN 14 mg/dL (7-18); Bilirubin, Total 0.4 mg/dL (0.2-1.0); CREATININE 0.8 mg/dL (0.55-1.02); Calcium 8.6 mg/dL (8.5-10.1); Chloride 104 mmol/L (98-107); Estimated GFR 102.86 (mL/min/1.73m2); Glucose 90 mg/dL (74-106); Potassium 3.6 mmol/L (3.5-5.1); Sodium 140 mmol/L (136-145); Total Protein 7.3 g/dL (6.4-8.2)
== END 2023-07-24 13:15 | disposition home or self-care (01) ==
LOC: LBO 13:16
PROVIDERS: PCP Family Medicine; Visit Provider Nurse Practitioner Family
DX: R10.2 Pelvic and perineal pain (principal)
CPT/HCPCS: 36415; 80053; 85025

== ENCOUNTER 2023-07-24 16:18 | Outpatient (REF) | payer OTHER, SELFPAY ==
[2023-07-24 21:22] LABS: Bilirubin Small (Negative); Blood Small (Negative); Clarity Clear (Clear); Glucose Negative (Negative); Ketones Negative (Negative); Leukocyte Esterase Negative (Negative); Nitrite Negative (Negative); Specific Gravity 1.025 (1.005-1.025); Urobilinogen 0.2 mg/dL (Up to 0.2)
[2023-07-24 21:29] LABS: WBC Negative HPF (0-5)
[2023-07-24 21:30] LABS: Bacteria Few HPF (Negative); C & S Indicated? No; Casts Negative LPF (Negative); Crystals Negative HPF (Negative); Epithelial Cells Moderate HPF (Negative); Mucus Negative (Negative)
== END 2023-07-24 16:19 | disposition home or self-care (01) ==
LOC: LBN 16:18
PROVIDERS: PCP Family Medicine; Visit Provider Nurse Practitioner Family
DX: R39.9 Unspecified symptoms and signs involving the genitourinary system (principal)
CPT/HCPCS: 81003; 81015

== ENCOUNTER 2023-07-28 15:30 | Outpatient (REF) | payer OTHER, SELFPAY ==
[2023-07-30 14:49] LABS: Chlamydia Result Negative (Negative); GC Result Negative (Negative)
== END 2023-07-28 15:31 | disposition home or self-care (01) ==
LOC: LBN 15:30
PROVIDERS: PCP Family Medicine; Visit Provider Nurse Practitioner Women's Health
DX: Z11.3 Encounter for screening for infections with a predominantly sexual mode of transmission (principal)
CPT/HCPCS: 87491; 87591

== ENCOUNTER 2024-09-13 03:32 | Outpatient (CLI) | payer OTHER, SELFPAY ==
[2024-09-13 09:18] LABS: HCT 42.1 % (36.0-46.0); HGB 13.9 g/dL (11.2-15.7); MCH 29.4 pg (27.0-33.0); MCHC 33.0 % (32.0-36.0); MCV 89 fL (80-95); MPV 8.7 fL (8.0-11.0); Platelet Count 253 10^3/uL (130-400); RBC 4.72 10^6/uL (3.93-5.22); RDW 12.2 % (11.7-14.6); RDW-SD 39.7 fL; WBC 6.37 10^3/uL (4.4-10.8)
== END 2024-09-13 03:33 | disposition home or self-care (01) ==
LOC: LBO 03:32
PROVIDERS: PCP Family Medicine; Visit Provider Obstetrics & Gynecology
DX: Z01.818 Encounter for other preprocedural examination (principal)
CPT/HCPCS: 36415; 85027; 86850; 86900; 86901

== ENCOUNTER 2024-09-15 08:51 | Day surgery (SDC) | payer OTHER, SELFPAY ==
--- NOTE | 2024-09-14 19:38 | ANES.PREOP_ITS ---
General Info Date of Service Date Performed: 09/15/24 Height: 5 ft 5 in Weight: 101.151 kg Body Mass Index (BMI): 37.0 Surgical Procedure: Operation Date: 09/15/24 10:40 Proposed Procedure Side Surgeon p Hysteroscopic removal of IUD with replacement Lelo Gardner DO Meds Allergies and Home Medications Allergies Allergy/AdvReac Type Severity Reaction Status Date / Time clarithromycin (From Biaxin) AdvReac Intermediate vomiting Verified 09/15/24 09:05 Influenza Virus Vaccines AdvReac Skin Rash Verified 09/15/24 09:05 Home Medication ?Medication ?Instructions ?Recorded levonorgestrel (Mirena) 1 device intrauterine ONCE 0 06/01/19 apremilast 30 mg tablet (Otezla) 30 mg PO BID 07/21/24 medroxyprogesterone 150 mg/mL 150 mg IM [id number] 90 da ys #1 mL 09/09/24 intramuscular suspension (Depo-Provera) Current Visit Medications: Current Medications Generic Name Dose Route Start Last Admin Trade Name Verenice PRN Reason Stop Dose Admin Ringer's Solution 1,000 mls @ 180 mls/hr 09/15/24 06:00 IV 09/15/24 23:59 INFUSION RUDY IV Miscellaneous Supplies 1 each 09/15/24 06:00 Iv Access IV 09/15/24 23:59 DIRECTED RUDY Sodium Chloride 0 ml 09/15/24 06:00 Normal Saline Flush 10 Ml Syr IV 09/15/24 23:59 PRN PRN Sodium Chloride 0 ml 09/15/24 06:00 Normal Saline 10 Ml Vial IJ 09/15/24 23:59 DIRECTED PRN Sterile Water 0 ml 09/15/24 06:00 Water,Injection,Sterile 10 Ml Vial IJ 09/15/24 23:59 DIRECTED PRN PFSH Active Problems Active Problems: Problem Status Onset Code IUD surveillance Acute ~05/2018 Z30.431 Contraception, device intrauterine Acute Z97.5 Medical History Medical History ASCUS with positive high risk HPV Normal in f/u Concussion Depressed affect Ovarian cyst Allergic rhinitis ALLERGIC DUST, MOLD, POLLEN Surgical History Surgical History [place] teeth extracted Tonsillectomy and adenoidectomy Tobacco Smoking/Tobacco Use Status: Never Passive smoking exposure: No Second hand exposure: Yes Alcohol Alcohol Intake: current Alcohol intake frequency: holidays/special occasions only Details: quit when she found out she was Substance Use Substance use: Occasionally Substance use type: marijuana Prental History History 1 Para 1 Hx # Term Pregnancies 1 Multiple births 0 Hx # Pregnancies 0 Ectopic pregnancies 0 AB induced 0 Hx Number of Living Children 1 AB spontaneous 0 Past Pregnancies Del. Date GA/Weeks # Preg Succ Route Wgt Sex Labor Lgth Anesth esia Location Prov [facility] 04/27/19 40 No vaginal 3260.195 g Female 12hrs 2 min A. JOSÉ MIGUEL Dobbins Delivery Date: 04/27/19 Last Updated by: Ruby Miller LPN Epidural, Nitrous during labor Vital Signs and Lab Results Vital Signs Most Recent Vital Signs in EMR: Temp Pulse Resp BP Pulse Ox 36.2 C L 57 L 16 109/94 H 98 09/15/24 08:55 09/15/24 08:55 09/15/24 08:55 09/15/24 08:55 09/15/24 08:55 Lab Results Blood Type / Crossmatch: Antibody Screen NEGATIVE 09/13/24 Complete Blood Count: WBC, (4.4-10.8) 6.37 10^3/uL 09/13/24, 09:09 RBC, (3.93-5.22) 4.72 10^6/uL 09/13/24, 09:09 Hgb, (11.2-15.7) 13.9 g/dL 09/13/24, 09:09 Hct, (36.0-46.0) 42.1 % 09/13/24, 09:09 Plt Count, (130-400) 253 10^3/uL 09/13/24, 09:09 Anesthesia Assessment and Plan Anesthesia History Personal History: No History of Anesthesia Complications Family History: No Family History of Anesthesia Complications Exercise Tolerance Exercise Tolerance: Metabolic Equivalents>4 Cardiac & Pulmonary Exam Cardiac Exam: Normal S1/S2 Heart Sounds Pulmonary Exam: Clear Bilateral Breath Sounds Implantable Cardiac Device Does patient have a Pacemaker or an ICD?: No Airway Exam Known Difficult Airway: No Mallampati Class: 3 Mouth Opening: Normal (> 3cm) Thyromental Distance: Greater than 3 cm Neck Range of Motion: Full ROM Neck Circumference: Normal Teeth Condition: Normal Dentition ASA Classification ASA Score: ASA 2 Emergency Case?: No NPO Status NPO Status: NPO Clears >2 hours, Solids >8 hours Status Status: Not Per Patient Anesthesia Plan Resuscitation Status: Full Code Anesthesia Technique: General Anesthesia Airway Planned: LMA Monitors Used: Standard Monitors Preoperative Comments:: 29 yo female for hysteroscopy/IUD removal. Sig PMHx: elevated BMI.
--- NOTE | 2024-09-14 23:05 | W.PM.HP.N ---
Date of service: 09/14/24 Time of Service: 23:05 Assessment and Plan Assessment and plan (1) Contraception, device intrauterine: Status: Acute Assessment and plan: Two 9-year-old -0-0-1 ( x 1) presenting for hysteroscopic retrieval of retained IUD. She has been consented for this procedure. We have reviewed that there are risks associated with anytime we break the skin including, but not limited to, bleeding, infection, damage to surrounding tissues. Particularly in this case we worry about the potential for uterine perforation where instruments go through the wall of the uterus. We have discussed that if this were to happen it could involve surrounding structures and require more invasive procedures as well as prolonged hospitalization. We discussed that there are risks associated with anesthesia as well as unforeseen complications. We discussed that anytime we go to the OR there is a potential need for blood transfusion; patient states that she would be willing to receive blood in the event that she needs it. Patient is consented for hysteroscopic retrieval of retained IUD and administration of blood products as needed. History of Present Illness Narrative: 29-year-old -0-0-1 ( x 1) presents today for scheduled hysteroscopic retrieval of retained IUD. Patient was initially seen in the office on 07/21/2024 for removal and replacement of a Mirena IUD. However, attempts to remove the IUD were met with significant resistance. An ultrasound was obtained to assess the position of the IUD and it was noted to have an embedded left arm. We discussed the potential utility of removal under anesthesia and the patient was very interested. She has previously been consented and risks as well as alternatives were reviewed with the patient. Review of Systems All systems reviewed & are unremarkable except as noted in HPI and below PFSH All Active Problems IUD surveillance (Acute ~05/2018) Mirena Contraception, device intrauterine (Acute) Medical History ASCUS with positive high risk HPV Normal in f/u Concussion Depressed affect Ovarian cyst Allergic rhinitis ALLERGIC DUST, MOLD, POLLEN Surgical History [place] teeth extracted Tonsillectomy and adenoidectomy Family History Mother No problems noted. Father No problems noted. Social History Smoking/Tobacco Use Status: Never Second Hand Exposure: Yes Smoking risk assessment performed?: Yes Alcohol Intake: current Alcohol Intake frequency: holidays/special occasions only Details: quit when she found out she was Drug use: Occasionally Substance use type: marijuana Household members: significant other Housing: house Seatbelt use: always Do you feel safe at home: Yes Do you feel safe in your relationship?: Yes Female Reproductive History Menstrual Age of Menarche: 11 Duration of menses: 6-7 days control method: progestin IUCD History History 1 Para 1 Hx # Term Pregnancies 1 Multiple births 0 Hx # Pregnancies 0 Ectopic pregnancies 0 AB induced 0 Hx Number of Living Children 1 AB spontaneous 0 Past Pregnancies Del. Date GA/Weeks # Preg Succ Route Wgt Sex Labor Lgth Anesthesia Location Prov Complic 04/27/19 40 No vaginal 7 lb 3 oz Female 12hrs 2 min Алкесандр Dobbins CNM Delivery Date: 04/27/19 Last Updated by: Ruby Miller LPN Epidural, Nitrous during labor Meds Allergies and Home Medications Allergies Allergy/AdvReac Type Severity Reaction Status Date / Time clarithromycin (From Biaxin) AdvReac Intermediate vomiting Verified 09/13/24 14:56 Influenza Virus Vaccines AdvReac Skin Rash Verified 09/13/24 14:56 Home Medications ?Medication ?Instructions ?Recorded ?Confirmed ?Type levonorgestrel (Mirena) 1 device intrauterine ONCE 06/01/19 09/13/24 History apremilast 30 mg tablet (Otezla) 30 mg PO BID 07/21/24 09/13/24 History medroxyprogesterone 150 mg/mL 150 mg IM [id number] 90 days #1 mL 09/09/24 09/13/24 Rx intramuscular suspension (Depo-Provera) Exam Narrative Exam Narrative: General: Well-nourished female no immediate distress Pulmonary: Clear to auscultation bilaterally; no overt respiratory distress Cardiac: Auscultates for regular rate and rhythm; no overt murmurs Abdomen: Soft, nontender, nondistended Extremities: No swelling Psych: Pleasant, cooperative Results Imaging Imaging Studies: Transvaginal ultrasound performed 08/12/2024 findings uterus measuring 7.9 x 4.1 x 5.2 cm endometrium measuring 0.3 cm. Left IUD arm appears to be embedded in the myometrium. Labs Labs: White count 6.37, hemoglobin 13.9, platelets 253, blood type a positive with a negative antibody screen Time Spent Time spent with Patient: 40-54 minutes Time was spent: preparing to see the patient(eg.review tests), obtaining and/or reviewing separately otained hiistory, ordering medications,tests, procedures, indepentently interpreting results, counseling the patient and care coordination
[2024-09-15] VITALS (24 sets, daily range): BP systolic 83–111; BP diastolic 38–94; PULSE 44–67; RESP 15–22; TEMP 36.2–36.5; O2SAT 91–100; BMI 37.0
[2024-09-15] MEDS: Lactated Ringers 1,000 ML 180 ML IV (09:21)
--- NOTE | 2024-09-15 11:17 | ROE_ITS ---
Operative Note Operative Note PRE-OP DIAGNOSIS: Retained Mirena IUD POST-OP DIAGNOSIS: same PROCEDURE: Hysteroscopic removal of Mirena IUD SURGEON: Lelo Gardner ANESTHESIA TYPE: General LMA/ETT Refer to Anesthesia Record ESTIMATED BLOOD LOSS: 10 PATHOLOGY: none sent COMPLICATIONS: None Patient was transported to: PACU Patient's condition: stable Indications: 29-year-old -0-0-1 ( x 1) presents for scheduled hysteroscopic retrieval of IUD. Patient was initially seen in the office on 07/21/2024 for removal of her IUD was met with considerable resistance. The procedure was abandoned and ultrasound was performed which identified concern for a left arm embedment of the IUD within the myometrium. Patient was consented for hysteroscopic retrieval in the OR. Originally, she had expressed interest in replacement; however, during her preoperative assessment patient stated that she would prefer Depo-Provera rather than replacement of the IUD. She was consented for Depo- Provera administration in the operating room. Findings: Strings appreciated at the cervix. IUD removed fully intact. Procedure Description: Patient was taken to the OR with IV fluids running. Prophylactic antibiotics were not necessary. Anesthesia was established and found to be adequate. Patient was positioned in the modified dorsolithotomy position with her legs up in yellowfin stirrups. Pelvis was prepped with Betadine. Straight cath to approximately 300 cc of clear yellow urine. Timeout was performed. A side loading grape speculum was used to visualize the cervix. 2 strings were appreciated to protrude from the cervical os. The string was grasped with a ring forcep and gently retracted. I then gently walked Silvia clamps up the length of the string until the tip of the IUD was just appreciated at the cervical os. With grasping of the tip of the cervical os and gentle retraction I was able to dislodge the IUD without issue and fully intact. Her bleeding was appropriate following removal. All instruments were removed and patient tolerated the procedure well. She was taken into PACU in good condition. Of note, she recieved Depo-Provera the day of her surgery and was advised to use backup contraception such as condoms for at least two weeks. Date of Procedure: 09/15/24
--- NOTE | 2024-09-15 11:55 | W.ANESPOSTOP ---
Postoperative Evaluation Date, Time and Location Date Performed: 09/15/24 Time Performed: 11:55 Patient Location: PACU Vital Signs Most Recent Imported Vital Signs: Most Recent Vital Signs Temp Pulse Resp BP Pulse Ox 36.5 C 45 L 15 86/50 L 97 09/15/24 11:34 09/15/24 11:46 09/15/24 11:46 09/15/24 11:46 09/15/24 11:46 Assessment Mental Status: Awake (Alert & Oriented to Patient Baseline) Airway and Respiratory Function: Patent airway with normal (patient baseline) respiratory exam Cardiovascular Function: Hemodynamically Stable Hydration Status: Adequately Hydrated Nausea & Vomiting: No Nausea or Vomiting Pain: Pain is tolerable per patient Peripheral Nerve Block: Patient did not receive a nerve block
== END 2024-09-15 08:52 | disposition home or self-care (01) ==
PROVIDERS: PCP Family Medicine; Visit Provider Obstetrics & Gynecology
PROC: 0UDB8ZZ Extraction of Endometrium, Via Natural or Artificial Opening Endoscopic (ICD-10-PCS; CPT 58558; principal; 2024-09-15 10:30)
DX: Z30.432 Encounter for removal of intrauterine contraceptive device (principal)
CPT/HCPCS: 58562; 81025; J1100; J1885; J2405; J2704

== ENCOUNTER 2025-01-21 15:45 | Outpatient (REF) | payer OTHER, SELFPAY | END 2025-01-21 15:46 | disposition home or self-care (01) | LOC: LBN 15:45 | PROVIDERS: PCP Family Medicine; Visit Provider Obstetrics & Gynecology | DX: N93.9 Abnormal uterine and vaginal bleeding, unspecified (principal) | CPT/HCPCS: 87480; 87510; 87660 ==